=== PATIENT | male | born 1980 | race African-American/Black ===

== ENCOUNTER 2018-09-03 12:34 | Inpatient (IN) | payer OTHER ==
[2018-09-03 13:22] VITALS: BMI 29.2
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
[2018-09-03] MEDS ORDERED: LOPERAMIDE HCL 2 MG CAPSULE PO PRN (16:39)
[2018-09-03] MEDS ORDERED: MAG HYDROX/AL HYDROX/SIMETH 30 ML UNIT-DOSE CUP PO PRN (16:39)
[2018-09-03] MEDS ORDERED: MAGNESIUM HYDROX 2400MG/30ML ORAL SUSPENSION 30 ML CUP PO PRN (16:39)
[2018-09-03] MEDS ORDERED: guaiFENesin/D-METHORPHAN HB 10 ML UNIT-DOSE CUPS PO PRN (16:39)
[2018-09-03] MEDS ORDERED: P-EPHED 60MG/TRIPROLIDI 2.5MG TABLET PO PRN (16:39)
[2018-09-03] MEDS ORDERED: MAGNESIUM CITRATE 300 ML BOTTLE PO PRN (16:39)
[2018-09-03] MEDS ORDERED: ACETAMINOPHEN 325 MG TABLET (FP) PO PRN (16:39)
[2018-09-03] MEDS ORDERED: MENTHOL/PHENOL 1 EACH UD MM PRN (16:39)
[2018-09-03] MEDS ORDERED: TUBERCULIN PPD 5 TU/0.1ML VIAL ID ONE (19:51)
[2018-09-03] MEDS: TOPIRAMATE 25 MG TABLET (FP) PO SCH (21:22)
[2018-09-03] MEDS: THIAMINE HCL 100 MG TABLET (FP) PO SCH (21:22)
[2018-09-04 01:59] LABS: URINE APPEARANCE CLEAR; URINE BILIRUBIN NEGATIVE (<2.0 mg/dL); URINE COLOR YELLOW; URINE GLUCOSE (UA) NEGATIVE (NEGATIVE); URINE KETONE NEGATIVE (NEGATIVE); URINE LEUK ESTERASE NEGATIVE (NEGATIVE); URINE NITRITE NEGATIVE (NEGATIVE); URINE PROTEIN NEGATIVE (NEGATIVE); URINE UROBILINOGEN NEGATIVE mg/dL (0.2-1.0)
[2018-09-04] MEDS: PRENATAL VITAMINS W/ FOLIC ACID TABLET (FP) PO SCH (09:56)
[2018-09-04] MEDS: PANTOPRAZOLE 40 MG TABLET (FP) PO SCH (09:56)
[2018-09-04] MEDS: CITALOPRAM HYDROBROMIDE 10 MG TABLET (FP) PO SCH (09:56)
[2018-09-04] MEDS: NALTREXONE HCL 50 MG TABLET PO SCH (09:56)
[2018-09-04] MEDS: TOPIRAMATE 25 MG TABLET (FP) PO SCH ×2 (09:57→21:18)
[2018-09-04 12:23] LABS: HEMATOCRIT 42.7 % (35.4-49); HEMOGLOBIN 14.5 GM/dL (11.7-16.9); MCH 31.1 pg (25.7-33.7); MCHC 33.9 g/dl (32.0-35.9); MEAN CELL VOLUME 91.6 fl (80-96); PLATELET COUNT 278 K/MM3 (134-434); RBC 4.66 M/mm3 (4.00-5.60); RDW 13.8 % (11.9-15.9); WHITE BLOOD COUNT 5.7 K/mm3 (4.0-10.0)
[2018-09-04 12:37] LABS: ALK PHOS 61 U/L (45-117); ANION GAP 7 MMOL/L (8-16); BILIRUBIN,TOTAL 0.3 mg/dL (0.2-1); BLOOD UREA NITROGEN 10 mg/dL (7-18); CALCIUM 9.2 mg/dL (8.5-10.1); CHLORIDE 105 mmol/L (98-107); CO2 27 mmol/L (21-32); GLUCOSE,RANDOM 99 mg/dL (74-106); POTASSIUM 3.9 mmol/L (3.5-5.1); SGOT/AST 20 U/L (15-37); SGPT/ALT 39 U/L (13-61); SODIUM 140 mmol/L (136-145)
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
[2018-09-04] MEDS: NICOTINE POLACRILEX 2 MG GUM BC PRN (21:18)
[2018-09-04] MEDS: THIAMINE HCL 100 MG TABLET (FP) PO SCH (21:18)
[2018-09-04] MEDS: MELATONIN 5 MG TABLETS PO PRN (21:19)
[2018-09-05] MEDS: PANTOPRAZOLE 40 MG TABLET (FP) PO SCH (09:58)
[2018-09-05] MEDS: TOPIRAMATE 25 MG TABLET (FP) PO SCH ×2 (09:59→21:24)
[2018-09-05] MEDS: CITALOPRAM HYDROBROMIDE 10 MG TABLET (FP) PO SCH (09:59)
[2018-09-05] MEDS: PRENATAL VITAMINS W/ FOLIC ACID TABLET (FP) PO SCH (09:59)
[2018-09-05] MEDS: NALTREXONE HCL 50 MG TABLET PO SCH (10:00)
[2018-09-05] MEDS: MELATONIN 5 MG TABLETS PO PRN (21:24)
[2018-09-05] MEDS: THIAMINE HCL 100 MG TABLET (FP) PO SCH (21:24)
[2018-09-05] MEDS: NICOTINE POLACRILEX 2 MG GUM BC PRN (21:25)
[2018-09-06] MEDS: CITALOPRAM HYDROBROMIDE 10 MG TABLET (FP) PO SCH (09:59)
[2018-09-06] MEDS: TOPIRAMATE 25 MG TABLET (FP) PO SCH ×2 (09:59→21:24)
[2018-09-06] MEDS: PANTOPRAZOLE 40 MG TABLET (FP) PO SCH (09:59)
[2018-09-06] MEDS: PRENATAL VITAMINS W/ FOLIC ACID TABLET (FP) PO SCH (10:00)
[2018-09-06] MEDS: NALTREXONE HCL 50 MG TABLET PO SCH (10:00)
[2018-09-06] MEDS: MELATONIN 5 MG TABLETS PO PRN (21:24)
[2018-09-06] MEDS: THIAMINE HCL 100 MG TABLET (FP) PO SCH (21:24)
[2018-09-06] MEDS: hydrOXYzine PAMOATE 50 MG CAPSULE (FP) PO PRN (21:24)
[2018-09-07] MEDS: PANTOPRAZOLE 40 MG TABLET (FP) PO SCH (09:50)
[2018-09-07] MEDS: TOPIRAMATE 25 MG TABLET (FP) PO SCH ×2 (09:50→21:24)
[2018-09-07] MEDS: PRENATAL VITAMINS W/ FOLIC ACID TABLET (FP) PO SCH (09:50)
[2018-09-07] MEDS: NALTREXONE HCL 50 MG TABLET PO SCH (09:50)
[2018-09-07] MEDS: CITALOPRAM HYDROBROMIDE 10 MG TABLET (FP) PO SCH (09:50)
[2018-09-07] MEDS: MELATONIN 5 MG TABLETS PO PRN (21:24)
[2018-09-07] MEDS: hydrOXYzine PAMOATE 50 MG CAPSULE (FP) PO PRN (21:24)
[2018-09-07] MEDS: THIAMINE HCL 100 MG TABLET (FP) PO SCH (21:24)
[2018-09-08] MEDS: CITALOPRAM HYDROBROMIDE 10 MG TABLET (FP) PO SCH (09:57)
[2018-09-08] MEDS: PRENATAL VITAMINS W/ FOLIC ACID TABLET (FP) PO SCH (09:57)
[2018-09-08] MEDS: TOPIRAMATE 25 MG TABLET (FP) PO SCH ×2 (09:57→21:35)
[2018-09-08] MEDS: PANTOPRAZOLE 40 MG TABLET (FP) PO SCH (09:57)
[2018-09-08] MEDS: NALTREXONE HCL 50 MG TABLET PO SCH (09:58)
[2018-09-08] MEDS: NICOTINE POLACRILEX 2 MG GUM BC PRN (21:35)
[2018-09-08] MEDS: hydrOXYzine PAMOATE 50 MG CAPSULE (FP) PO PRN (21:35)
[2018-09-08] MEDS: MELATONIN 5 MG TABLETS PO PRN (21:35)
[2018-09-08] MEDS: THIAMINE HCL 100 MG TABLET (FP) PO SCH (21:35)
[2018-09-09] MEDS: TOPIRAMATE 25 MG TABLET (FP) PO SCH ×2 (09:48→21:32)
[2018-09-09] MEDS: PRENATAL VITAMINS W/ FOLIC ACID TABLET (FP) PO SCH (09:48)
[2018-09-09] MEDS: CITALOPRAM HYDROBROMIDE 10 MG TABLET (FP) PO SCH (09:48)
[2018-09-09] MEDS: PANTOPRAZOLE 40 MG TABLET (FP) PO SCH (09:48)
[2018-09-09] MEDS: NALTREXONE HCL 50 MG TABLET PO SCH (09:49)
[2018-09-09] MEDS: THIAMINE HCL 100 MG TABLET (FP) PO SCH (21:32)
[2018-09-10] MEDS: TOPIRAMATE 25 MG TABLET (FP) PO SCH ×2 (09:46→21:27)
[2018-09-10] MEDS: PRENATAL VITAMINS W/ FOLIC ACID TABLET (FP) PO SCH (09:46)
[2018-09-10] MEDS: PANTOPRAZOLE 40 MG TABLET (FP) PO SCH (09:46)
[2018-09-10] MEDS: CITALOPRAM HYDROBROMIDE 10 MG TABLET (FP) PO SCH (09:47)
[2018-09-10] MEDS: NALTREXONE HCL 50 MG TABLET PO SCH (09:47)
[2018-09-10] MEDS: THIAMINE HCL 100 MG TABLET (FP) PO SCH (21:27)
[2018-09-11] MEDS: PANTOPRAZOLE 40 MG TABLET (FP) PO SCH (10:33)
[2018-09-11] MEDS: PRENATAL VITAMINS W/ FOLIC ACID TABLET (FP) PO SCH (10:33)
[2018-09-11] MEDS: TOPIRAMATE 25 MG TABLET (FP) PO SCH ×2 (10:33→21:41)
[2018-09-11] MEDS: CITALOPRAM HYDROBROMIDE 10 MG TABLET (FP) PO SCH (10:33)
[2018-09-11] MEDS: NALTREXONE HCL 50 MG TABLET PO SCH (10:34)
[2018-09-11] MEDS: THIAMINE HCL 100 MG TABLET (FP) PO SCH (21:41)
[2018-09-12] MEDS: PRENATAL VITAMINS W/ FOLIC ACID TABLET (FP) PO SCH (09:39)
[2018-09-12] MEDS: NALTREXONE HCL 50 MG TABLET PO SCH (09:40)
[2018-09-12] MEDS: CITALOPRAM HYDROBROMIDE 10 MG TABLET (FP) PO SCH (09:41)
[2018-09-12] MEDS: PANTOPRAZOLE 40 MG TABLET (FP) PO SCH (09:41)
[2018-09-12] MEDS: TOPIRAMATE 25 MG TABLET (FP) PO SCH ×2 (09:41→21:39)
[2018-09-12] MEDS: THIAMINE HCL 100 MG TABLET (FP) PO SCH (21:39)
[2018-09-12] MEDS: MELATONIN 5 MG TABLETS PO PRN (21:39)
[2018-09-13] MEDS: TOPIRAMATE 25 MG TABLET (FP) PO SCH ×2 (10:13→21:33)
[2018-09-13] MEDS: CITALOPRAM HYDROBROMIDE 10 MG TABLET (FP) PO SCH (10:14)
[2018-09-13] MEDS: NALTREXONE HCL 50 MG TABLET PO SCH (10:14)
[2018-09-13] MEDS: PRENATAL VITAMINS W/ FOLIC ACID TABLET (FP) PO SCH (10:14)
[2018-09-13] MEDS: PANTOPRAZOLE 40 MG TABLET (FP) PO SCH (10:14)
[2018-09-13] MEDS: MELATONIN 5 MG TABLETS PO PRN (21:33)
[2018-09-13] MEDS: THIAMINE HCL 100 MG TABLET (FP) PO SCH (21:33)
[2018-09-14] MEDS: PANTOPRAZOLE 40 MG TABLET (FP) PO SCH (09:45)
[2018-09-14] MEDS: NALTREXONE HCL 50 MG TABLET PO SCH (09:45)
[2018-09-14] MEDS: TOPIRAMATE 25 MG TABLET (FP) PO SCH ×2 (09:46→21:34)
[2018-09-14] MEDS: CITALOPRAM HYDROBROMIDE 10 MG TABLET (FP) PO SCH (09:46)
[2018-09-14] MEDS: PRENATAL VITAMINS W/ FOLIC ACID TABLET (FP) PO SCH (09:46)
[2018-09-14] MEDS: THIAMINE HCL 100 MG TABLET (FP) PO SCH (21:34)
[2018-09-14] MEDS: MELATONIN 5 MG TABLETS PO PRN (21:35)
--- NOTE | 2018-09-15 10:16 | PN ---
[facility] Progress Note Note: PATIENT REQUESTED TO SPEAK TO PROVIDER REGARDING H/O DISCOMFORT TO TESTICLE AREA. PATIENT STATES HE HAS HAD OCCASIONAL "PULLING SENSATION" TO TESTICLES WHEN AT HOME. PATIENT DENIES SWELLING, DISCOLORATION AND PAIN TO TESTICLES. PATIENT STATES DISCOMFORT OCCURS AFTER SEX. Vital Signs Temperature 98 F 09/15/18 06:44 Pulse Rate 87 09/15/18 06:44 Respiratory Rate 18 09/15/18 06:44 Blood Pressure 120/68 09/15/18 06:44 O2 Sat by Pulse Oximetry (%) PE: ALERT AND ORIENTED X 3 SKIN WARM AND DRY, AFEBRILE EXT FULL ROM, AMB AD MANISH A/P: H/O TESTICULAR DISCOMFORT PATIENT COUNSELED ON IMPORTANCE OF MAKING APPOINTMENT WITH PCP UPON DISCHARGE FOR REFERRAL TO UROLOGY PATIENT ADVISED TO NOTIFY MD/DISPATCH MANAGER/NURSING STAFF FOR WORSENING OF SX
[2018-09-15] MEDS: PRENATAL VITAMINS W/ FOLIC ACID TABLET (FP) PO SCH (10:41)
[2018-09-15] MEDS: PANTOPRAZOLE 40 MG TABLET (FP) PO SCH (10:41)
[2018-09-15] MEDS: NALTREXONE HCL 50 MG TABLET PO SCH (10:41)
[2018-09-15] MEDS: TOPIRAMATE 25 MG TABLET (FP) PO SCH ×2 (10:41→21:35)
[2018-09-15] MEDS: CITALOPRAM HYDROBROMIDE 10 MG TABLET (FP) PO SCH (10:41)
[2018-09-15] MEDS: THIAMINE HCL 100 MG TABLET (FP) PO SCH (21:35)
[2018-09-15] MEDS: MELATONIN 5 MG TABLETS PO PRN (21:35)
[2018-09-16] MEDS: PRENATAL VITAMINS W/ FOLIC ACID TABLET (FP) PO SCH (09:47)
[2018-09-16] MEDS: PANTOPRAZOLE 40 MG TABLET (FP) PO SCH (09:47)
[2018-09-16] MEDS: CITALOPRAM HYDROBROMIDE 10 MG TABLET (FP) PO SCH (09:47)
[2018-09-16] MEDS: TOPIRAMATE 25 MG TABLET (FP) PO SCH ×2 (09:47→21:59)
[2018-09-16] MEDS: NALTREXONE HCL 50 MG TABLET PO SCH (09:48)
[2018-09-16] MEDS: MELATONIN 5 MG TABLETS PO PRN (21:59)
[2018-09-16] MEDS: THIAMINE HCL 100 MG TABLET (FP) PO SCH (21:59)
[2018-09-17] MEDS: CITALOPRAM HYDROBROMIDE 10 MG TABLET (FP) PO SCH (10:46)
[2018-09-17] MEDS: PANTOPRAZOLE 40 MG TABLET (FP) PO SCH (10:46)
[2018-09-17] MEDS: NALTREXONE HCL 50 MG TABLET PO SCH (10:47)
[2018-09-17] MEDS: PRENATAL VITAMINS W/ FOLIC ACID TABLET (FP) PO SCH (10:47)
[2018-09-17] MEDS: TOPIRAMATE 25 MG TABLET (FP) PO SCH ×2 (10:47→21:04)
[2018-09-17] MEDS: IBUPROFEN 400 MG TABLET (FP) PO PRN (17:53)
[2018-09-17] MEDS: MELATONIN 5 MG TABLETS PO PRN (21:04)
[2018-09-17] MEDS: THIAMINE HCL 100 MG TABLET (FP) PO SCH (21:04)
[2018-09-18] MEDS: PRENATAL VITAMINS W/ FOLIC ACID TABLET (FP) PO SCH (09:52)
[2018-09-18] MEDS: NALTREXONE HCL 50 MG TABLET PO SCH (09:53)
[2018-09-18] MEDS: TOPIRAMATE 25 MG TABLET (FP) PO SCH ×2 (09:53→21:21)
[2018-09-18] MEDS: CITALOPRAM HYDROBROMIDE 10 MG TABLET (FP) PO SCH (09:53)
[2018-09-18] MEDS: PANTOPRAZOLE 40 MG TABLET (FP) PO SCH (09:53)
[2018-09-18] MEDS: IBUPROFEN 400 MG TABLET (FP) PO PRN (16:08)
[2018-09-18] MEDS: MELATONIN 5 MG TABLETS PO PRN (21:21)
[2018-09-18] MEDS: THIAMINE HCL 100 MG TABLET (FP) PO SCH (21:21)
[2018-09-19] MEDS: PANTOPRAZOLE 40 MG TABLET (FP) PO SCH (10:13)
[2018-09-19] MEDS: hydrOXYzine PAMOATE 50 MG CAPSULE (FP) PO PRN (10:13)
[2018-09-19] MEDS: TOPIRAMATE 25 MG TABLET (FP) PO SCH ×2 (10:13→21:26)
[2018-09-19] MEDS: PRENATAL VITAMINS W/ FOLIC ACID TABLET (FP) PO SCH (10:13)
[2018-09-19] MEDS: CITALOPRAM HYDROBROMIDE 10 MG TABLET (FP) PO SCH (10:13)
[2018-09-19] MEDS: NALTREXONE HCL 50 MG TABLET PO SCH (10:14)
[2018-09-19] MEDS: THIAMINE HCL 100 MG TABLET (FP) PO SCH (21:26)
[2018-09-19] MEDS: MELATONIN 5 MG TABLETS PO PRN (21:26)
[2018-09-20] MEDS: PANTOPRAZOLE 40 MG TABLET (FP) PO SCH (09:45)
[2018-09-20] MEDS: PRENATAL VITAMINS W/ FOLIC ACID TABLET (FP) PO SCH (09:45)
[2018-09-20] MEDS: TOPIRAMATE 25 MG TABLET (FP) PO SCH ×2 (09:45→21:39)
[2018-09-20] MEDS: CITALOPRAM HYDROBROMIDE 10 MG TABLET (FP) PO SCH (09:45)
[2018-09-20] MEDS: NALTREXONE HCL 50 MG TABLET PO SCH (09:46)
[2018-09-20] MEDS: MELATONIN 5 MG TABLETS PO PRN (21:39)
[2018-09-20] MEDS: THIAMINE HCL 100 MG TABLET (FP) PO SCH (21:39)
[2018-09-21] MEDS: NALTREXONE HCL 50 MG TABLET PO SCH (09:55)
[2018-09-21] MEDS: TOPIRAMATE 25 MG TABLET (FP) PO SCH ×2 (09:55→21:31)
[2018-09-21] MEDS: PRENATAL VITAMINS W/ FOLIC ACID TABLET (FP) PO SCH (09:55)
[2018-09-21] MEDS: PANTOPRAZOLE 40 MG TABLET (FP) PO SCH (09:55)
[2018-09-21] MEDS: CITALOPRAM HYDROBROMIDE 10 MG TABLET (FP) PO SCH (09:55)
[2018-09-21] MEDS: THIAMINE HCL 100 MG TABLET (FP) PO SCH (21:31)
[2018-09-21] MEDS: MELATONIN 5 MG TABLETS PO PRN (21:31)
[2018-09-22] MEDS: PRENATAL VITAMINS W/ FOLIC ACID TABLET (FP) PO SCH (09:37)
[2018-09-22] MEDS: TOPIRAMATE 25 MG TABLET (FP) PO SCH ×2 (09:37→21:13)
[2018-09-22] MEDS: CITALOPRAM HYDROBROMIDE 10 MG TABLET (FP) PO SCH (09:37)
[2018-09-22] MEDS: PANTOPRAZOLE 40 MG TABLET (FP) PO SCH (09:37)
[2018-09-22] MEDS: NALTREXONE HCL 50 MG TABLET PO SCH (09:38)
--- NOTE | 2018-09-22 10:21 | PN ---
[facility] Progress Note Note: PATIENT SCHEDULED FOR DISCHARGE TOMORROW MORNING TO [facility] 90 DAY PROGRAM. PATIENT IS MEDICALLY STABLE AT THIS TIME AND DENIES SI/HI. PATIENT HAS PRESCRIBED MEDICATION BOTTLES IN HIS BELONGINGS AND DOES NOT REQUIRE REFILLS AT THIS TIME LAST DATE FILLED 09/03/18. PATIENT STATES HE ACHIEVED ALL GOALS OF REHAB AND ENCOURAGED TO COMPLETE PROGRAM TO PREVENT RELAPSE. PATIENT ALSO STRONGLY ADVISED TO FOLLOW UP WITH PCP TO CONTINUE MEDICAL MANAGEMENT. Vital Signs Temperature 97.8 F 09/22/18 07:01 Pulse Rate 70 09/22/18 07:01 Respiratory Rate 18 09/22/18 07:01 Blood Pressure 118/79 09/22/18 07:01 O2 Sat by Pulse Oximetry (%)
[2018-09-22] MEDS: IBUPROFEN 400 MG TABLET (FP) PO PRN (18:37)
[2018-09-22] MEDS: THIAMINE HCL 100 MG TABLET (FP) PO SCH (21:13)
[2018-09-23 07:22] VITALS: BP 120/76; PULSE 75; TEMP 97.6
[2018-09-23] MEDS ORDERED: PT OWN MED DRAWER 7, Y5N ONE (08:49)
== END 2018-09-23 08:50 | disposition home or self-care (01) | DRG 772 ==
LOC: YASAS 12:34 → Y3W 16:54
PROVIDERS: ADMIT Psychiatry & Neurology Psychiatry; ATTEND Psychiatry & Neurology Psychiatry
PROC: HZ42ZZZ Group Counseling for Substance Abuse Treatment, Cognitive-Behavioral (ICD-10-PCS; principal; 2018-09-03)
DX: F10.20 Alcohol dependence, uncomplicated (principal); F33.3 Major depressive disorder, recurrent, severe with psychotic symptoms; K21.9 Gastro-esophageal reflux disease without esophagitis; N50.819 Testicular pain, unspecified; G43.909 Migraine, unspecified, not intractable, without status migrainosus; Z87.438 Personal history of other diseases of male genital organs; Z91.5 Personal history of self-harm; Z59.0 Homelessness
CPT/HCPCS: 36415; 80053; 81003; 85027; 86593